=== PATIENT | female | born 1985 | race African-American/Black ===

== ENCOUNTER 2017-07-19 17:39 | Emergency (ER) | payer SELFPAY ==
[~2017-07-19] VITALS: Ht 165.1 cm; Wt 80.7 kg
[2017-07-19 17:39] VITALS: BP 166/109
[2017-07-19] MEDS ORDERED: ALLE10TA12 PO (20:26)
[2017-07-19] MEDS ORDERED: DEBR6.5S4 AU (20:26)
== END 2017-07-19 20:50 | disposition home or self-care (01) ==
LOC: M ED 17:39
DX: J02.9 Acute pharyngitis, unspecified (principal); H61.23 Impacted cerumen, bilateral